=== PATIENT | male | born 1965 | race Caucasian/White ===

== ENCOUNTER 2017-01-18 09:55 | Inpatient (IN) | payer BC, OTHER ==
[2017-01-18] VITALS (15 sets, daily range): BP systolic 88–152; BP diastolic 53–92; PULSE 52–97; RESP 16–22; TEMP 97.3–98.3; O2SAT 96–100
[~2017-01-18 09:55] MED LIST: 1-ME1LIQ PO; LEVO100T4 PO; LISI-363 PO; LOPI600T PO; TYLETAB36 PO
[2017-01-18] MEDS ORDERED: NITROGLYCERIN-D5W 50 MG/250 ML 250 ML IV PRN (10:00)
[2017-01-18] MEDS ORDERED: NITROGLYCERIN 0.4 MG SL 25 TABS/BTL SL STA (10:00)
[2017-01-18] MEDS ORDERED: SODIUM CHLORIDE 0.9% FLUSH 10 ML FLUSH IVF PRN (10:00)
[2017-01-18] MEDS ORDERED: ASPIRIN 81 MG CHEW TAB PO STA (10:00)
[2017-01-18] MEDS ORDERED: SODIUM CHLOR 0.9% 1000 ML INJ 1,000 ML IV ONE (10:00)
[2017-01-18] MEDS ORDERED: HEPARIN SODIUM - IV 10,000 UNITS/10 ML VIAL IV STA (10:00)
[2017-01-18] MEDS ORDERED: NITROGLYCERIN-D5W 50 MG/250 ML 250 ML ONE (10:03)
[2017-01-18] MEDS ORDERED: NITROGLYCERIN 0.4 MG SL 25 TABS/BTL SL ONE (10:03)
[2017-01-18] MEDS ORDERED: MORPHINE SULFATE 4 MG/ML INJ IV PUSH ONE (10:15)
[2017-01-18] MEDS ORDERED: HEPARIN-NS/PF INJ 1,000 ML ONE (10:15)
[2017-01-18] MEDS ORDERED: BIVALIRUDIN 250 MG VIAL ONE ×2 (10:15→10:32)
[2017-01-18] MEDS ORDERED: ONDANSETRON HCL 4 MG/2 ML VIAL IV PUSH ONE (10:15)
--- NOTE | 2017-01-18 10:15 | RADRPT ---
EXAM DATE/TIME: 01/18/2017 10:06 [place] COMPARISON: No previous studies available for comparison. INDICATIONS : Cardiac alert, chest pain MEDICAL HISTORY : None. SURGICAL HISTORY : None. ENCOUNTER: Initial ACUITY: 1 day PAIN SCORE: 10/10 LOCATION: Bilateral chest FINDINGS: Portable AP view of the chest demonstrates a normal-sized cardiac silhouette. No effusion, consolidat ion, or pneumothorax is visualized. The bones and soft tissues demonstrate no acute abnormality. Plea se note that the left hemidiaphragm and costophrenic angle is not visualized. CONCLUSION: No acute cardiopulmonary abnormality is identified given the technique. Chad Gibbs MD on January 18, 2017 at 10:12 Board Certified Radiologist. This report was verified electronically.
[2017-01-18] MEDS ORDERED: NITROGLYCERIN INJ 5 ML ONE (10:16)
[2017-01-18] MEDS ORDERED: HEPARIN SODIUM - IV 10,000 UNITS/10 ML VIAL ONE (10:16)
[2017-01-18] MEDS ORDERED: MIDAZOLAM HCL 2 MG/2 ML VIAL ONE (10:16)
[2017-01-18 10:19] LABS: CHLORIDE 105 MEQ/L (98-107); POTASSIUM 3.7 MEQ/L (3.5-5.1); SODIUM (NA) 140 MEQ/L (136-145)
[2017-01-18 10:21] LABS: BASOPHIL # 0.2 TH/MM3 (0-0.2); BASOPHIL % 1.8 % (0.0-2.0); EOSINOPHIL # 0.4 TH/MM3 (0-0.4); EOSINOPHIL % 3.7 % (0.0-4.0); HEMATOCRIT 51.1 % (39.0-51.0); HEMO FLAGS DIFF FINAL; LYMPH % 47.2 % (9.0-44.0); LYMPHOCYTE # 4.6 TH/MM3 (1.0-4.8); MEAN CELL VOLUME 99.7 FL (80.0-100.0); MEAN CORPUSCULAR HEMOGLOBIN 32.5 PG (27.0-34.0); MEAN CORPUSCULAR HGB CONC 32.6 % (32.0-36.0); MONO % 7.3 % (0.0-8.0); PLATELET COUNT 273 TH/MM3 (150-450); RED BLOOD COUNT 5.13 MIL/MM3 (4.50-5.90); RED CELL DISTRIBUTION WIDTH 14.6 % (11.6-17.2); WHITE BLOOD COUNT 9.9 TH/MM3 (4.0-11.0)
[2017-01-18 10:22] LABS: ANION GAP 13 MEQ/L (5-15); BICARBONATE 22.3 MEQ/L (21.0-32.0); BLOOD UREA NITROGEN 9 MG/DL (7-18); MAGNESIUM 2.2 MG/DL (1.5-2.5)
[2017-01-18 10:23] LABS: APTT (PATIENT) 27.6 SEC (24.3-30.1); PROTHROMBIN TIME - PATIENT 10.7 SEC (9.8-11.6)
[2017-01-18 10:25] LABS: GLOMERULAR FILTRATION RATE 79 ML/MIN (>89)
--- NOTE | 2017-01-18 10:26 | PD ---
HPI Chief Complaint: STEMI Alert Time Seen by Provider: 10:00 Travel History International Travel<30 days: No Contact w/Intl Traveler<30days: No Traveled to known affect area: No History of Present Illness HPI This 51-year-old male says he woke up at 9 AM with left-sided chest pain. He says the pain is severe. It is not pleuritic. It radiates down his left arm. He has not been diaphoretic. He has not had pain like this before. He says he has no history of exertional chest pain. He has a history of hypertension and is on 2 medications but is not sure what they are. He does smoke cigarettes. Pain is constant and severe PFSH Past Medical History Anxiety: No Depression: No Cancer: No Cardiovascular Problems: Yes Diabetes: No Diverticulitis: Yes Endocrine: No Glaucoma: No Genitourinary: No Hepatitis: No Hiatal Hernia: No Hypertension: Yes Immune Disorder: No Musculoskeletal: Yes (LEFT HIP AVACULAR NECROSIS) Neurologic: No Psychiatric: No Reproductive: No Respiratory: No Thyroid Disease: Yes Past Surgical History Abdominal Surgery: Yes (UMBILICAL HERNIA REPAIR) Body Medical Devices: ABDOMINAL MESH Cardiac Surgery: No Ear Surgery: No Endocrine Surgery: No Eye Surgery: No Genitourinary Surgery: No Oral Surgery: Yes (T&A) Pacemaker: No Thoracic Surgery: No Other Surgery: Yes (Total hip (L); umbilical hernia) Family History Family Hypercholesterolemia: Yes Social History Alcohol Use: Yes Tobacco Use: Yes Substance Use: No Allergies-Medications (Allergen,Severity, Reaction): Coded Allergies: No Known Allergies (Verified , 01/18/17) Reported Meds & Prescriptions Reported Meds & Active Scripts Active Review of Systems General / Constitutional: No: Fever, Chills Eyes: No: Diploplia, Blurred Vision HENT: No: Headaches, Vertigo Cardiovascular: Positive: Chest Pain or Discomfort, No: Palpitations Respiratory: No: Cough, Shortness of Breath Gastrointestinal: No: Nausea, Vomiting Genitourinary: No: Urgency, Frequency Musculoskeletal: No: Myalgias Skin: No Rash, No Itching Neurologic: No: Weakness, Dizziness Hematologic/Lymphatic: No: Easy Bruising Physical Exam Narrative GENERAL: Well-developed male. He is complaining of severe pain SKIN: Focused skin assessment warm/dry. HEAD: Atraumatic. Normocephalic. EYES: Pupils equal and round. No scleral icterus. No injection or drainage. ENT: No nasal bleeding or discharge. Mucous membranes pink and moist. NECK: Trachea midline. No JVD. CARDIOVASCULAR: Regular rate and rhythm. No murmur appreciated. There is no chest wall tenderness RESPIRATORY: No accessory muscle use. Clear to auscultation. Breath sounds equal bilaterally. GASTROINTESTINAL: Abdomen soft, non-tender, nondistended. Hepatic and splenic margins not palpable. MUSCULOSKELETAL: No obvious deformities. No clubbing. No cyanosis. No edema. NEUROLOGICAL: Awake and alert. No obvious cranial nerve deficits. Motor grossly within normal limits. Normal speech. PSYCHIATRIC: Appropriate mood and affect; insight and judgment normal. Data Data Last Documented VS Vital Signs Date Time Temp Pulse Resp B/P (MAP) Pulse Ox O2 Delivery O2 Flow Rate FiO2 01/18/17 10:00 100 Nasal Cannula 2.00 01/18/17 09:59 74 22 141/92 (108) Orders Orders Troponin I (01/18/17 10:00) Ckmb (Isoenzyme) Profile (01/18/17 10:00) Complete Blood Count With Diff (01/18/17 10:00) Basic Metabolic Panel (Bmp) (01/18/17 10:00) Magnesium (Mg) (01/18/17 10:00) Calcium (01/18/17 10:00) Prothrombin Time / Inr (Pt) (01/18/17 10:00) Act Partial Throm Time (Ptt) (01/18/17 10:00) B-Type Natriuretic Peptide (01/18/17 10:00) Chest, Single Ap (01/18/17 10:00) Electrocardiogram (01/18/17 10:00) Oxygen Administration (01/18/17 10:00) Iv Access Insert/Monitor (01/18/17 10:00) Oximetry (01/18/17 10:00) Sodium Chlor 0.9% 1000 Ml Inj (Ns 1000 M (01/18/17 10:00) Sodium Chloride 0.9% Flush (Ns Flush) (01/18/17 10:00) Aspirin Chew (Aspirin Chew) (01/18/17 10:00) Nitroglycerin Sl (Nitrostat Sl) (01/18/17 10:00) Nitroglycerin-D5w 50 Mg/250 Ml (Nitrogly (01/18/17 10:00) Heparin Inj (Heparin Inj) (01/18/17 10:00) Admit Order (Ed Use Only) (01/18/17 10:02) Nitroglycerin-D5w 50 Mg/250 Ml (Nitrogly (01/18/17 10:03) Nitroglycerin Sl (Nitrostat Sl) (01/18/17 10:03) Ondansetron Inj (Zofran Inj) (01/18/17 10:15) Morphine Inj (Morphine Inj) (01/18/17 10:15) CKMB (01/18/17 10:05) CKMB% (01/18/17 10:05) Labs Laboratory Tests Test 01/18/17 10:05 White Blood Count 9.9 TH/MM3 Red Blood Count 5.13 MIL/MM3 Hemoglobin 16.7 GM/DL Hematocrit 51.1 % Mean Corpuscular Volume 99.7 FL Mean Corpuscular Hemoglobin 32.5 PG Mean Corpuscular Hemoglobin Concent 32.6 % Red Cell Distribution Width 14.6 % Platelet Count 273 TH/MM3 Mean Platelet Volume 8.3 FL Neutrophils (%) (Auto) 40.0 % Lymphocytes (%) (Auto) 47.2 % Monocytes (%) (Auto) 7.3 % Eosinophils (%) (Auto) 3.7 % Basophils (%) (Auto) 1.8 % Neutrophils # (Auto) 4.0 TH/MM3 Lymphocytes # (Auto) 4.6 TH/MM3 Monocytes # (Auto) 0.7 TH/MM3 Eosinophils # (Auto) 0.4 TH/MM3 Basophils # (Auto) 0.2 TH/MM3 CBC Comment DIFF FINAL Differential Comment Prothrombin Time 10.7 SEC Prothromb Time International Ratio 1.0 RATIO Activated Partial Thromboplast Time 27.6 SEC Blood Urea Nitrogen 9 MG/DL Creatinine 0.99 MG/DL Random Glucose 158 MG/DL Calcium Level 8.1 MG/DL Magnesium Level 2.2 MG/DL Sodium Level 140 MEQ/L Potassium Level 3.7 MEQ/L Chloride Level 105 MEQ/L Carbon Dioxide Level 22.3 MEQ/L Anion Gap 13 MEQ/L Estimat Glomerular Filtration Rate 79 ML/MIN Total Creatine Kinase 120 U/L Creatine Kinase MB 8.4 NG/ML Troponin I 1.08 NG/ML B-Type Natriuretic Peptide 6 PG/ML MDM Medical Decision Making Medical Screen Exam Complete: Yes Emergency Medical Condition: Yes Medical Record Reviewed: Yes Differential Diagnosis On arrival an EKG was obtained which shows elevations in leads II, III, and F consistent with ST elevation IN. Case discussed with Dr. Smith and the patient will is being transferred to [facility] emergently. He has been given a single dose of heparin. He has been given a dose of morphine and a nitroglycerin drip was started. The patient has had ongoing pain. Narrative Course Patient is being transferred to [facility] emergently as a STEMI Diagnosis Primary Impression: STEMI (ST elevation myocardial infarction) Admitting Information Admitting Physician Requests: Admit Ron Jeffery MD Jan 18, 2017 10:26
[2017-01-18 10:28] LABS: CREATINE KINASE 120 U/L (39-308)
[2017-01-18] MEDS ORDERED: IOHEXOL 350 MG/ML 100 ML BTL (for Cath Lab) OTHER ONE (10:38)
[2017-01-18 10:41] LABS: CKMB 8.4 NG/ML (0.5-3.6)
[2017-01-18] MEDS ORDERED: CLOPIDOGREL 300 MG TAB ONE (11:13)
--- NOTE | 2017-01-18 11:20 | MB ---
cc: REFUGIO BARRIOS DATE OF : 1965 DATE OF CONSULTATION: 01/18/2017 REASON FOR CONSULTATION: ST segment elevation RI. HISTORY OF PRESENT ILLNESS A 51-year-old male with no cardiac medical history who presented to [facility] complaining of chest pain that started at 9 a.m. He describes the pain as severe, that radiates to the left arm and associated with shortness of breath. Emergency department EKG showed ST segment elevation in 2, 3 and aVF consistent with acute inferior STEMI, thus cardiology has been consulted for emergent PCI. The patient was started on heparin and nitroglycerin and he has been transferred to [facility] for catheterization and possible PCI. PAST MEDICAL HISTORY: 1. Hypertension. 2. Left hip avascular necrosis. PAST SURGICAL HISTORY 1. Umbilical hernia repair. 2. Total hip replacement on the left. FAMILY HISTORY: Noncontributory. SOCIAL HISTORY: He is a smoker. He reports alcohol use. Denies illicit substance abuse. ALLERGIES: NO KNOWN DRUG ALLERGIES. HOME MEDICATIONS: None. PHYSICAL EXAMINATION: Vital signs: Temperature 97, respiratory rate 20, heart rate 71, blood pressure 91/61, O2 sat 100% on two liters nasal cannula. GENERAL: He awake, alert, oriented x3. Neck: No JVD. Heart: Regular rate and rhythm. No murmurs, rubs or gallops. Lungs: Clear to auscultation bilaterally. Abdomen: Benign. Extremities: No cyanosis or edema. Pulses throughout. LABORATORY DATA: CBC, hemoglobin 16, hematocrit 51 and platelet count 273, INR 1, sodium 140, potassium 3.7, BUN 9, creatinine 0.99, troponin 1.08. Chest x-ray: No acute cardiopulmonary process. EKG: sinus rhythm with ST-segment elevation in inferior leads. ASSESSMENT/PLAN A 51-year-old male smoker, presenting with inferior ST-segment elevation RI. The patient remains on a nitro drip and heparin was given. He will be taken emergently to the Cardiac Catheterization Laboratory for primary PCI per ACC/ AHA guidelines. The risks and benefits of left heart catheterization, PCI, including but not limited to neurovascular trauma, infection, acute kidney injury, bleeding, stroke, emergent bypass surgery and have been explained to the patient. The patient understands the risks and is willing to proceed. RECOMMENDATIONS: Emergent left heart catheterization/possible PCI. Further therapy to be determined. MD ANNA Carlisle/HIRAM /10:35 AM /11:08 AM [facility]
[2017-01-18] MEDS ORDERED: SODIUM CHLOR 0.9% 1000 ML INJ 1,000 ML IV SCH (11:23)
[2017-01-18] MEDS ORDERED: ACETAMINOPHEN 325 MG TAB PO PRN (11:30)
[2017-01-18] MEDS ORDERED: MISC INFORMATION XX ONE (11:30)
--- NOTE | 2017-01-18 11:35 | CATHPROC ---
[employer] HIS Report Study Information Study Number Admission Scheduled Start Study Start [id number] Jan 18 2017 10:05AM 01/18/2017 Jan 18 2017 10:19AM [place] [facility] Cardiac Catheterization Admit Source Facility Department Emergency department [facility] - [facility] Physician and Clinical Staff Initial Jimmy Klein Bell Clerk Desi Quispe,COLLEEN Bell Clerk Sandy Jensen,COLLEEN Other cathlab, cathlab Recorder Sharlene Ibrahim,DOCTOR NATUROPATHIC TECH2 Scrub Senthil Barrett,RT(R) Procedures Performed Procedure Location (Site) Vessel Name Coronary Angiograms LCA Left Coronary Drug Eluting Inflatio RCA Mid Right Coronary L Heart Cath LV Gram-hand inj. LV LV Ventricle PTCA RCA Mid Right Coronary Wire insertion Fem Art (right) Femoral Art Equipment Time Electric Motor Repairer Description Size Mfg Part Number Used/Scraped COPILOT VALVE, BLEEDBACK [id number] 10:27 [employer] Used CONTROL *[id number] PERCLOSE, PRO GLIDE CLOSER 10:58 [employer] FR 6 [id number] *[id number] Used DEVICE PERCLOSE, PRO GLIDE CLOSER 11:07 [employer] FR 6 [id number] *[id number] Used DEVICE TRANSDUCER, TRUWAVE [id number] 10:25 GARCIA SALAZAR * Used W/STOCKCOCK *[id number] 10:53 [employer] BALLOON, 2.5 12MM EMERGE MR 2.5 12MM Used *[id number]- INTRODUCER SET, 10:25 [employer] FR 5 [id number]-U-[id number] Used MICROPUNCTURE, STIFFENED *[id number] *[id number] *[id number] *[id number] 131130 11:10 DAI/ST. VIJAYA MEDICAL ANGIOSEAL, FR6 VIP FR 6 Used *[id number] 10:25 [employer] INDUSTRIES PACK, CCL CUSTOM * Used *[id number] BALLOON, 3.75 X 12MM NC [id number] 10:58 MED[employer]ONIC 12MM Used EUPHORA *[id number] STENT, 3.5 18 RESOLUTE [id number] 10:54 MEDTRONIC 3.5 18 Used INTEGRITY RX *[id number] 10:26 [employer] MEDICAL 30 ARNOL INDEFLATOR Used *[id number] 10:25 [employer] WIRE, 3MMJ .035 180CM 180CM Used *[id number] 10:25 NAMIC MANIFOLD, 4 PORT * Used *[id number] 10:25 [employer]COMED OMNIPAQUE, 350 MG, 150ML 150ML [id number] Used [id number] 10:25 [employer] MEDICAL BLANKET,WARM AIR CCL * Used *[id number] 10:26 TERUMO MEDICAL SHEATH, FR6 TERUMO (10CM) FR 6 Used *[id number] WIRE, RUNTHROUGH NS FLOPPY 10:54 TERUMO MEDICAL 180CM Used .014 180CM *[id number] Equipment Model, Serial, Lot Number and Expiration Data Description Model Number Serial Number Lot Number Expiration Date BALLOON, 2.5 12MM EMERGE MR [id number] 08-12-2019 BALLOON, 3.75 X 12MM [place] [id number] 03-12-2018 EUPHORA PERCLOSE, PRO GLIDE CLOSER [id number] 09-07-2018 DEVICE PERCLOSE, PRO GLIDE CLOSER [id number] 08-08-2018 DEVICE STENT, 3.5 18 RESOLUTE [id number] 08-18-2018 INTEGRITY RX History: Allergies Allergy Reaction No Known Allergies History: Risk Factors Family History of Hypertension Dyslipidemia Previous CT Previous Heart Failure Premature CAD Yes Yes No No No Prior Valve Prior PCI Prior CABG Surgery No No No Cerebrovascular Peripheral Artery Chronic Lung On Dialysis Diabetes Disease Disease Disease No No No No No History: Symptoms/Diagnosis Selection Items Angina-unstable History: Stress Tests Stress or Imaging Studies Performed No History: Other Current Smoker Method Packs a Day Years Used Pack Years Yes Cigarettes 1 20 20 Medication Medication Total Dose (Bolus/Oral) Medication Total Dosage/Unit 1% XYLOCAINE 15 mL ANGIOMAX BOLUS 14 mL FENTANYL 50 mcg OXYGEN 2 l/min PLAVIX 600 mg VERSED 2 mg Medications (Bolus/Oral) Medication Time Given Dosage/Unit Administered By Reason OXYGEN 01/18/2017 10:40:43 AM 2 l/min cathlab, cathlab 2 l/min OXYGEN given in lab by cathlab cathlab via Nasal. Ordered by Jimmy Flowers. 1% XYLOCAINE 01/18/2017 10:48:10 AM 15 mL Jimmy Flowers 15 mL 1% XYLOCAINE given in lab by Jimmy Flowers in Right Groin via Subcutaneous. Ordered by Jimmy Renee. VERSED 01/18/2017 10:48:58 AM 2 mg Sandy Jensen 2 mg VERSED given in lab by Sandy Jensen RN in Left Antecubital via Peripheral IV. Ordered by Jimmy Marie. FENTANYL 01/18/2017 10:49:16 AM 50 mcg Sandy Jensen 50 mcg FENTANYL given in lab by Sandy Jensen, COLLEEN in Left Antecubital via Peripheral IV. Ordered by Jimmy Flowers. ANGIOMAX BOLUS 01/18/2017 10:50:48 AM 14 mL Sandy Jensen 14 mL ANGIOMAX BOLUS given in lab by Sandy Jensen RN in Left Antecubital via Peripheral IV. Order ed by Jimmy Flowers. PLAVIX 01/18/2017 11:15:32 AM 600 mg Sandy Jensen 600 mg PLAVIX given in lab by Sandy Jensen, COLLEEN via Oral. Ordered by Jimmy Flowers. Medication (Drip) Medication Time Given Dosage/Unit Concentration/Unit Diluent (ml) Solutio n AGGRASTAT DRIP 01/18/2017 10:51:27 AM 0.15 mcg/kg/min 12.5 mg 250 NaCl .9 0.15 mcg/kg/min AGGRASTAT DRIP given in lab by Sandy Jensen RN in Left Antecubital via Peripheral IV. Pump/Drip Flow = 16.2 ml/hr using NaCl .9 with a concentration of 12.5 mg in 250 ml. Ordered by Jimmy Flowers. IV Solutions 01/18/2017 10:40:44 AM 0 mL (IV) NaCl .9 Patient arrived on IV Solutions given by cathlab, cathlab in Left Antecubital via Peripheral IV. Pump /Drip Flow = 20 ml/hr using NaCl .9. Ordered by Jimmy Floewrs. NITROGLYCERIN DRIP 01/18/2017 10:40:42 AM 10 mcg/min 50 mg 250 NaCl .9 Patient arrived on 10 mcg/min NITROGLYCERIN DRIP given by cathlab, cathlab in Left Antecubital via Pe ripheral IV. Pump/Drip Flow = 3 ml/hr using NaCl .9 with a concentration of 50 mg in 250 ml. Ordered by Jimmy Flowers. Initial Case Assessment Cardiovascular NIBP 156/93 Edema Present Skin color Skin None Normal Warm Dry Neurological State Oriented to time-place- Alert Moves all extremities person Respiration - General Respiration Rate SpO2 (%) O2 (lpm) (B/min) 17 100 3 Final Case Assessment Cardiovascular HR NIBP Chest Pain 68 114/76 0 Edema Present Skin color Skin None Normal Warm Dry Neurological State Oriented to time-place- Alert Moves all extremities person Respiration - General Respiration Rate SpO2 (%) (B/min) 11 94 Chronological Log Time Study Chronological Log 10:39:10 Patient Name, D.O.B, / Armband Verified By R.N. 10:39:12 Consent signed by the physician and the patient and verified by the [facility] staff. 10:39:13 Pre-op and post- op instructions given; patient acknowledges understanding of instructions. 10:39:15 Patient has been NPO for More than 6Hrs. 10:39:16 Skin Breakdown- 10:39:18 Disposable Defibrillator Pads On Patient. 10:39:22 324 ASPRIN AND 5,000 UNITS HEPARIN GIVEN IN [facility] 10:40:38 Hasmukh Prominences Protected 10:40:40 A # 20 IV was noted in the Antecubital (left). Grade = 0 10:40:41 A # 20 IV was noted in the Antecubital (right). Grade = 0 Patient arrived on 10 mcg/min NITROGLYCERIN DRIP given by cathlab cathlab in Left Antecubital via Peripheral IV. 10:40:42 Pump/Drip Flow = 3 ml/hr using NaCl .9 with a concentration of 50 mg in 250 ml. Ordered by Jimmy Renee. 10:40:43 2 l/min OXYGEN given in lab by cathjonny cathlab via Nasal. Ordered by Jimmy Flowers. Patient arrived on IV Solutions given by cathlab, cathlab in Left Antecubital via Peripheral IV . Pump/Drip Flow = 20 10:40:44 ml/hr using NaCl .9. Ordered by Jimmy Flowers. 10:40:45 History and physical on the chart or being dictated. Vitals capture started with the following parameters, Patient=Adult, Interval=5 min, Initial Pr xbccqv=245 mmHg, 10:42:58 Deflation Rate=5 mmHg, Cuff placed on Left Arm 10:44:07 HR=53 bpm, OIKN=434/93 mmhg, OaP7=882.0 %, Resp=17 B/min, Pain=3, Amita=10, Ocampo=2 Assessment: Initial Case, ZFSN=769/93 mmhg, Edema=None, Color=Normal, Skin = Warm, Dry 10:44:14 Neurological: State=Alert, Ox3, MICHAELS Respiration: Resp=17 B/min, FsC0=308 %, O2=3 lpm 10:44:59 Bilateral groins prepped with 2% chlorhexidine, and with a 3 min. waiting time. 10:45:58 Reference ECG taken 10:46:45 Pressure channel 1 zeroed. Time Out. Correct patient, correct procedure,correct physician, power injector not loaded with contrast with surgical 10:47:51 team present. Time Out Concurred by MD, individual staff in procedure 10:48:08 Case Start 15 mL 1% XYLOCAINE given in lab by Jimmy Flowers in Right Groin via Subcutaneous. Ordered b y Lionel, 10:48:10 Jimmy. 10:48:24 Access site was Right Femoral Artery. A INTRODUCER SET, MICROPUNCTURE, STIFFENED FR 5 was advanced into the Fem Art (right) using the Modified 10:48:37 Seldinger technique. 10:48:43 HR=63 bpm, CPDK=828/84 mmhg, TrI6=203.0 %, Resp=12 B/min, Pain=3, Amita=10, Ocampo=2 A SHEATH, FR6 TERUMO (10CM) FR 6 was exchanged in the Fem Art (right). This was necessary in or leila to achieve 10:48:43 vascular hemostasis. 10:48:58 2 mg VERSED given in lab by Sandy Jensen, COLLEEN in Left Antecubital via Peripheral IV. Orde red by Jimmy Flowers. 50 mcg FENTANYL given in lab by Sandy Jensen, COLLEEN in Left Antecubital via Peripheral IV. Orde red by Lionel, 10:49:16 Jimmy. A JL 4.0 INFINITI CATHETER FR 5 was advanced over a wire. OMNIPAQUE, 350 MG, 150ML 150ML was us ed for 10:49:41 injections. 10:49:49 The LCA was injected and visualized at various angles. OMNIPAQUE, 350 MG, 150ML 150ML used . Recorded Pressure: Ao, HR=71, Condition=Condition 1 10:49:58 (Aorta) Ao 126/79/99 14 mL ANGIOMAX BOLUS given in lab by Sandy Jensen, COLLEEN in Left Antecubital via Peripheral IV. Ordered by Smith- 10:50:48 Jimmy Pichardo. After removing the current catheter a JR 4.0 GUIDE CATHETER FR 6 was advanced over a WIRE, 3MMJ .035 180CM 10:51:13 180CM. 0.15 mcg/kg/min AGGRASTAT DRIP given in lab by Sandy Jensen RN in Left Antecubital via Anni pheral IV. 10:51:27 Pump/Drip Flow = 16.2 ml/hr using NaCl .9 with a concentration of 12.5 mg in 250 ml. Ordered by Jimmy Flowers. 10:52:52 A WIRE, RUNTHROUGH NS FLOPPY .014 180CM 180CM was inserted via Fem Art (right). 10:53:34 HR=66 bpm, KXIJ=446/80 mmhg, SpO2=95.0 %, Resp=12 B/min, Pain=3, Amita=10, Ocampo=2 A BALLOON, 2.5 12MM EMERGE MR 2.5 12MM was inserted over WIRE, RUNTHROUGH NS FLOPPY .014 180CM 180CM 10:54:21 via the RCA Mid. 10:54:46 NITRO DRIP DISCONTINUED A BALLOON, 2.5 12MM EMERGE MR 2.5 12MM over a WIRE, RUNTHROUGH NS FLOPPY .014 180CM 180CM in th e RCA 10:56:04 Mid was inflated using a 30 ARNOL INDEFLATOR at 14 arnol for 20 sec. 10:56:10 Balloon Removed. A STENT, 3.5 18 RESOLUTE INTEGRITY RX 3.5 18 was advanced through a JL 4.0 INFINITI CATHETER FR 5 over a 10:56:13 WIRE, RUNTHROUGH NS FLOPPY .014 180CM 180CM. A STENT, 3.5 18 RESOLUTE INTEGRITY RX 3.5 18 was deployed using a 30 ARNOL INDEFLATOR at 14 atmos pheres for 10:56:14 20 seconds in the RCA Mid. 10:57:23 Delivery device removed 10:58:29 A balloons was inserted over wire via the RCA Mid. A BALLOON, 3.75 X 12MM NC EUPHORA 12MM over a WIRE, RUNTHROUGH NS FLOPPY .014 180CM 180CM in th e RCA 10:58:34 Mid was inflated using a 30 ARNOL INDEFLATOR at 14 arnol for 15 sec. 10:58:35 HR=69 bpm, FJSI=862/76 mmhg, SpO2=95 %, Resp=16 B/min, Pain=3, Amita=10, Ocampo=2 10:59:49 Balloon Removed. 10:59:57 Wire removed After removing the current catheter a PIGTAIL ANG. INFINITI CATHETER FR 5 was advanced over a W MONIKA, 3MMJ .035 11:00:02 180CM 180CM. Recorded Pressure: LV, HR=65, Condition=Condition 1 11:02:11 (Left Ventricle) LV 112/4/8 11:02:32 The LV was manually injected with 10 cc's and visualized. OMNIPAQUE, 350 MG, 150ML 150ML us ed. Recorded Pressure: LV, Ao, HR=66, Condition=Condition 1 11:02:43 (Left Ventricle) LV 115/4/10, (Aorta) Ao 113/70/88 11:03:08 Catheter was removed 11:03:34 HR=64 bpm, VDXM=129/74 mmhg, SpO2=95.0 %, Resp=17 B/min, Pain=3, Amita=10, Ocampo=2 11:04:11 An injection in the Fem Art (right) was made through the SHEATH, FR6 TERUMO (10CM) FR 6. 11:04:41 PERCLOSE, PRO GLIDE CLOSER DEVICE FR 6 placement in the Fem Art (right) 11:08:39 HR=63 bpm, NIBP=91/59 mmhg, SpO2=97.0 %, Resp=12 B/min, Pain=3, Amita=10, Ocampo=2 11:08:53 PERCLOSE, PRO GLIDE CLOSER DEVICE FR 6 placement in the Fem Art (right) 11:09:04 PERCLOSE UNSUCCESSFUL 11:12:37 ANGIOMAX DRIP DISCONTINUED 11:13:30 HR=73 bpm, NFJY=105/69 mmhg, SpO2=96.0 %, Resp=16 B/min, Pain=3, Amita=10, Ocampo=2 11:15:32 600 mg PLAVIX given in lab by Sandy Jensen, COLLEEN via Oral. Ordered by Jimmy Flowers. 11:17:25 Case End 11:18:33 HR=70 bpm, XCNF=433/77 mmhg, SpO2=96.0 %, Resp=18 B/min, Pain=3, Amita=10, Ocampo=2 11:23:36 HR=68 bpm, YJDY=180/76 mmhg, SpO2=94.0 %, Resp=11 B/min, Pain=3, Amita=10, Ocampo=2 Assessment: Final Case, HR=68 BPM, QNUO=433/76 mmhg, Chest Pain=0, Edema=None, Color=Normal, Sk in = Warm, Dry 11:24:30 Neurological: State=Alert, Ox3, MICHAELS Respiration: Resp=11 B/min, SpO2=94 % 11:26:42 Patient moved to stretcher 11:27:03 FEMSTOP PLACED ON RIGHT GROIN 11:27:25 Vitals capture stopped. 11:28:25 Bedside Report will be given. 11:29:04 A Left Heart Cath was performed. Vitals capture started with the following parameters, Patient=Adult, Interval=5 min, Initial Pr yhbntb=720 mmHg, 11:29:36 Deflation Rate=5 mmHg, Cuff placed on Left Arm 11:30:09 UCCR=653/77 mmhg, Pain=3, Amita=10, Ocampo=2 11:33:19 Vitals capture stopped. 11:34:18 Clinical correlaton risk stratification. End Study - Contrast Media Used In Study Contrast Total Opened (mL) Total Used (mL) Total Wasted (mL) Omnipaque 90 90 0 End Study - Radiation Exposure Fluoro Time (minutes) 5.4 End Study - Patient Disposition Complications Transferred To Interventional Outcome No Telemetry Bed successful
[2017-01-18] MEDS ORDERED: CLOPIDOGREL 300 MG TAB PO ONE (11:45)
--- NOTE | 2017-01-18 12:28 | MA ---
cc: REFUGIO BARRIOS DATE OF : 1965 DATE: 01/18/2017 PROCEDURE PERFORMED 1. Left heart catheterization. 2. Selective right and left coronary angiography. 3. Left ventriculogram. 4. Successful PCI to mid right coronary artery in the setting of STEMI. INDICATION Inferior STEMI APPROACH Right transfemoral. PROCEDURE DESCRIPTION Consent signed. The patient was taken emergently to the Cardiac Catheterization Laboratory. The right groin was prepped and draped in sterile fashion using 1% lidocaine for local anesthesia, and a micropuncture kit. A 6- Sammarinese sheath was inserted into the right femoral artery, right femoral artery, right common femoral artery. Angiography was performed to confirm position of the sheath. Then selective right and left coronary angiography was performed with a JL-4 and a JR-4 guide. Angiography was performed in multiple views. We identified a culprit lesion of the stenting in the mid right coronary artery. We also gave Angiomax for IV anticoagulation and a run-through wire was used to cross the lesion and anchored distally in the PDA. The lesion was predilated with a 2.5 balloon followed by insertion of the femoral with 3.5 18 drug- eluting stent. The stent was postdilated with a noncompliant 3.75 12 balloon. Final angiographic views revealed good stent position expansion with KAMILA-III flow and no residual stenosis. The patient tolerated the procedure well without complications. Estimated blood loss less than 50 cc. Total contrast used 75 cc. Of note, we did a left ventriculogram. This was with an angled pigtail that was introduced into the ventricle over a wire. Sheath was followed by pressure recordings, left ventriculogram and pullback. Groin access site was closed with manual pressure. RESULTS: The left ventricular pressure was 115/4 with an LVEDP of 10. Aortic pressure was 113/70 with a mean of 88. There was no gradient upon pullback from the left ventricle to the aorta. Left Ventriculogram revealed a symmetric ruthie ventricle with estimated ejection fraction of 50%. ANGIOGRAPHY; 1. LM- Patent giving off the LAD and LCx arteries 2. LAD- Transapical vessel has a 70% lesion in its proximal segment, is giving off 2 diagonal vessel which patent 3. LCx- Minimal luminal irregularities, prominent OM1 vessel which is patent 4. RCA- Dominant, given off the PDA and PLB. The RCA has a thrombus in its mid- segment with KAMILA flow 2. CONCLUSION 1. Successful PCI / FABRICIO to mid RCA in the setting of inferior ST segment elevation NE. 2. Preserved LV systolic function. RECOMMENDATIONS: The patient will be admitted to [facility] for post cath care. He will be started on aspirin and Plavix as well as aggressive medical management for secondary prevention for CAD. MD ANNA Carlisle/HIRAM /11:20 AM /12:14 PM MTDAlan
[2017-01-18] MEDS ORDERED: LEVO137T2 PO (16:41)
[2017-01-18] MEDS ORDERED: MORPHINE SULFATE 8 MG/ML INJ ONE (18:38)
--- NOTE | 2017-01-18 18:45 | ECHRPT ---
Indication: Coronary Atherosclerosis CONCLUSIONS The left ventricular systolic function is normal with an estimated ejection fraction in the range of 55-60%. Normal left ventricular size. Wall thickness is normal. No regional wall motion abnormalities are present. Trace mitral valve regurgitation. Pulmonary arterial systolic pressure could not be estimated due to an insufficient tricuspid valve regurgitation doppler jet for measurement. BP: 91 / 61 HR: 71 Rhythm: Sinus MEASUREMENTS (Male / Female) Normal Values Technical Quality:Fair 2D ECHO LV Diastolic Diameter PLAX 4.6 cm 4.2 - 5.9 / 3.9 - 5.3 cm LV Systolic Diameter PLAX 3.1 cm IVS Diastolic Thickness 1.1 cm 0.6 - 1.0 / 0.6 - 0.9 cm LVPW Diastolic Thickness 1.1 cm 0.6 - 1.0 / 0.6 - 0.9 cm LV Relative Wall Thickness 0.5 RV Internal Dim ED PLAX 2.5 cm LVOT Diameter 1.9 cm LA Systolic Diameter LX 4.0 cm 3.0 - 4.0 / 2.7 - 3.8 cm LV Ejection Fraction MOD 4C 57.0 % LV Cardiac Index MOD 4C 1628.4 cm/minm LV Ejection Fraction 4C AL 61.6 % LV Cardiac Index 4C AL 1829.3 cm/minm M-MODE Aortic Root Diameter MM 2.8 cm AV Cusp Separation MM 2.2 cm DOPPLER AV Peak Velocity 119.0 cm/s AV Peak Gradient 5.7 mmHg LVOT Peak Velocity 103.0 cm/s LVOT Peak Gradient 4.2 mmHg AV Area Cont Eq pk 2.5 cm MV Area PHT 2.9 cm Mitral E Point Velocity 75.5 cm/s Mitral A Point Velocity 92.3 cm/s Mitral E to A Ratio 0.8 LV E' Lateral Velocity 8.8 cm/s Mitral E to LV E' Lateral Ratio 8.6 LV E' Septal Velocity 6.3 cm/s Mitral E to LV E' Septal Ratio 11.9 PV Peak Velocity 84.2 cm/s PV Peak Gradient 2.8 mmHg FINDINGS LEFT VENTRICLE The left ventricular systolic function is normal with an estimated ejection fraction in the range of 55-60%. Normal left ventricular size. Wall thickness is normal. No regional wall motion abnormalities are present. RIGHT VENTRICLE Normal right ventricular size and systolic function. LEFT ATRIUM The left atrial size is normal. RIGHT ATRIUM The right atrial size is normal. ATRIAL SEPTUM Normal atrial septal thickness without atrial level shunting by limited color doppler interrogation. AORTA The aortic root and proximal ascending aorta are normal in size on limited imaging. MITRAL VALVE Trace mitral valve regurgitation. AORTIC VALVE Trileaflet aortic valve. No aortic valve stenosis or regurgitation. TRICUSPID VALVE Pulmonary arterial systolic pressure could not be estimated due to an insufficient tricuspid valve regurgitation doppler jet for measurement. PULMONARY VALVE The pulmonary valve is not well visualized. VESSELS The inferior vena cava is normal in size. PERICARDIUM No pericardial effusion. Morgan Ontiveros MD (Electronically Signed) Final Date:18 January 2017 18:44
[2017-01-18 18:59] LABS: HEMATOCRIT 43.4 % (39.0-51.0); REVIEW FLAG FINAL
[2017-01-18] MEDS ORDERED: ONDANSETRON HCL 4 MG/2 ML VIAL ONE (19:58)
[2017-01-18] MEDS ORDERED: ONDANSETRON HCL 4 MG/2 ML VIAL IV PUSH PRN (20:15)
[2017-01-18] MEDS: METOPROLOL TARTRATE 25 MG TAB PO SCH (20:34)
[2017-01-18] MEDS: ATORVASTATIN 10 MG TAB PO SCH (20:34)
[2017-01-18] MEDS: oxyCODONE/ACETAMINOPHEN 5 MG/325 MG TAB PO PRN (20:38)
[2017-01-19] VITALS (25 sets, daily range): BP systolic 105–142; BP diastolic 72–87; PULSE 64–90; RESP 16–20; TEMP 98.3–98.7; O2SAT 97–99
[2017-01-19] MEDS: oxyCODONE/ACETAMINOPHEN 5 MG/325 MG TAB PO PRN ×4 (02:47→22:22)
[2017-01-19 04:20] LABS: BASOPHIL % 0.4 % (0.0-2.0); EOSINOPHIL # 0.1 TH/MM3 (0-0.4); EOSINOPHIL % 1.2 % (0.0-4.0); HEMATOCRIT 38.2 % (39.0-51.0); HEMO FLAGS DIFF FINAL; LYMPH % 25.3 % (9.0-44.0); LYMPHOCYTE # 2.8 TH/MM3 (1.0-4.8); MEAN CELL VOLUME 99.8 FL (80.0-100.0); MEAN CORPUSCULAR HEMOGLOBIN 33.8 PG (27.0-34.0); MEAN CORPUSCULAR HGB CONC 33.9 % (32.0-36.0); MONO % 9.5 % (0.0-8.0); NEUT % 63.6 % (16.0-70.0); PLATELET COUNT 191 TH/MM3 (150-450); RED BLOOD COUNT 3.82 MIL/MM3 (4.50-5.90); RED CELL DISTRIBUTION WIDTH 14.6 % (11.6-17.2); WHITE BLOOD COUNT 11.1 TH/MM3 (4.0-11.0)
[2017-01-19 04:38] LABS: POTASSIUM 3.3 MEQ/L (3.5-5.1)
[2017-01-19 04:40] LABS: HDL CHOLESTEROL 34.3 MG/DL (40.0-60.0)
[2017-01-19] MEDS: METOPROLOL TARTRATE 25 MG TAB PO SCH ×2 (08:35→21:24)
[2017-01-19] MEDS: ASPIRIN 81 MG CHEW TAB PO SCH (08:35)
[2017-01-19] MEDS: LISINOPRIL 5 MG TAB PO SCH (08:35)
[2017-01-19] MEDS: CLOPIDOGREL 75 MG TAB PO SCH (08:35)
--- NOTE | 2017-01-19 11:28 | PD.CARD.PN ---
Subjective Subjective Remarks No CV complaints Overnight events noted. Hematoma on access site after bedrest. Objective Medications Current Medications Medications (Trade) Dose Ordered Sig/Patricia Route Start Time Stop Time Status Last Admin (NS Flush) 2 ml UNSCH PRN IVF 01/18/17 10:00 Nitroglycerin/ Dextrose 250 ml @ 3 mls/hr TITRATE PRN IV 01/18/17 10:00 01/18/17 10:07 (Tylenol) 325 mg Q4H PRN PO 01/18/17 11:30 (Aspirin Chew) 81 mg DAILY PO 01/19/17 09:00 01/19/17 08:35 (Plavix) 75 mg DAILY PO 01/19/17 09:00 01/19/17 08:35 (Lopressor) 12.5 mg BID PO 01/18/17 21:00 01/19/17 08:35 (Prinivil) 5 mg DAILY PO 01/19/17 09:00 01/19/17 08:35 (Lipitor) 10 mg HS PO 01/18/17 21:00 01/18/17 20:34 (Zofran Inj) 4 mg Q6H PRN IV PUSH 01/18/17 20:15 (Percocet 5-325 Mg) 1 tab Q6H PRN PO 01/18/17 20:15 01/19/17 10:17 Vital Signs / I&O Vital Signs Date Time Temp Pulse Resp B/P (MAP) Pulse Ox O2 Delivery O2 Flow Rate FiO2 01/19/17 10:03 73 01/19/17 09:00 80 01/19/17 08:38 20 01/19/17 08:00 65 01/19/17 07:15 65 01/19/17 07:15 98.3 68 20 142/79 (100) 98 01/19/17 07:15 98 Nasal Cannula 2.00 01/19/17 06:04 74 01/19/17 05:00 68 01/19/17 04:06 18 01/19/17 04:00 67 01/19/17 03:05 73 01/19/17 03:00 98 Nasal Cannula 2.00 01/19/17 03:00 98.5 78 18 132/87 (102) 98 01/19/17 02:09 73 01/19/17 01:00 73 01/19/17 00:00 76 01/18/17 23:00 98 Nasal Cannula 2.00 01/18/17 23:00 82 01/18/17 23:00 98.1 82 16 129/80 (96) 98 01/18/17 22:00 92 01/18/17 21:00 90 01/18/17 20:00 82 01/18/17 19:00 100 Nasal Cannula 5.00 01/18/17 19:00 97.8 83 20 152/90 (110) 100 01/18/17 19:00 80 01/18/17 18:00 97 01/18/17 17:00 77 01/18/17 16:00 74 01/18/17 15:00 97.3 58 18 143/80 (101) 96 01/18/17 15:00 58 01/18/17 14:00 54 01/18/17 13:00 52 01/18/17 12:33 98.3 55 18 88/53 (65) 98 01/18/17 12:00 86 I/O 01/18/17 01/18/17 01/18/17 01/19/17 01/19/17 01/19/17 07:00 15:00 23:00 07:00 15:00 23:00 Intake Total 575 ml 720 ml Output Total 1500 ml 650 ml Balance -925 ml 70 ml Intake Oral 575 ml 720 ml Output Urine Total 1500 ml 650 ml # Bowel Movements 1 Physical Exam GENERAL: Well-nourished, well-developed patient. SKIN: Warm and dry. HEAD: Normocephalic. EYES: No scleral icterus. No injection or drainage. NECK: Supple, trachea midline. No JVD or lymphadenopathy. CARDIOVASCULAR: Regular rate and rhythm without murmurs, gallops, or rubs. RESPIRATORY: Breath sounds equal bilaterally. No accessory muscle use. GASTROINTESTINAL: Abdomen soft, non-tender, nondistended. EXTREMITIES: No cyanosis, or edema. NEUROLOGICAL: Awake, alert, and oriented x 3. Non-focal. Laboratory Laboratory Tests Test 01/18/17 18:42 01/19/17 04:10 Hemoglobin 15.0 GM/DL 12.9 GM/DL Hematocrit 43.4 % 38.2 % White Blood Count 11.1 TH/MM3 Red Blood Count 3.82 MIL/MM3 Mean Corpuscular Volume 99.8 FL Mean Corpuscular Hemoglobin 33.8 PG Mean Corpuscular Hemoglobin Concent 33.9 % Red Cell Distribution Width 14.6 % Platelet Count 191 TH/MM3 Mean Platelet Volume 8.5 FL Neutrophils (%) (Auto) 63.6 % Lymphocytes (%) (Auto) 25.3 % Monocytes (%) (Auto) 9.5 % Eosinophils (%) (Auto) 1.2 % Basophils (%) (Auto) 0.4 % Neutrophils # (Auto) 7.0 TH/MM3 Lymphocytes # (Auto) 2.8 TH/MM3 Monocytes # (Auto) 1.1 TH/MM3 Eosinophils # (Auto) 0.1 TH/MM3 Basophils # (Auto) 0.0 TH/MM3 CBC Comment DIFF FINAL Differential Comment Blood Urea Nitrogen 9 MG/DL Creatinine 1.09 MG/DL Random Glucose 142 MG/DL Calcium Level 7.6 MG/DL Sodium Level 137 MEQ/L Potassium Level 3.3 MEQ/L Chloride Level 104 MEQ/L Carbon Dioxide Level 23.0 MEQ/L Anion Gap 10 MEQ/L Estimat Glomerular Filtration Rate 71 ML/MIN Triglycerides Level 678 MG/DL Cholesterol Level 187 MG/DL LDL Cholesterol MG/DL HDL Cholesterol 34.3 MG/DL Cholesterol/HDL Ratio 5.45 RATIO Imaging Last Impressions Chest X-Ray 01/18/17 1000 Signed Impressions: Service Date/Time: Wednesday, January 18, 2017 10:06 - CONCLUSION: No acute cardiopulmonary abnormality is identified given the technique. Chad Gibbs MD Assessment and Plan Problem List: (1) STEMI (ST elevation myocardial infarction) ICD Codes: I21.3 - ST elevation (STEMI) myocardial infarction of unspecified site Status: Acute Plan: s/p PCI/FABRICIO to Mid RCA. Chest pain free, ambulating without difficulty. Right side hematoma after bowel movement. h&h and vital stable Recommendations: - ASA and Plavix - BB, ACEi, Statins - Encourage ambulation and incentive spirometry (2) DDD (degenerative disc disease), lumbar ICD Codes: M51.36 - DDD (degenerative disc disease), lumbar Status: Acute Problem Qualifiers (1) STEMI (ST elevation myocardial infarction): Qualified Codes: I21.11 - ST elevation (STEMI) myocardial infarction involving right coronary artery Jimmy Flowers MD Jan 19, 2017 11:28
--- NOTE | 2017-01-19 14:09 | EKG ---
Date Performed: 01/18/2017 Time Performed: 09:57:49 PTAGE: 51 years EKG: Sinus rhythm WITH OCCASIONAL SUPRAVENTRICULAR PREMATURE COMPLEXES MARKED LEFT AXIS DEVIATION LOW QRS VOLTAGE IN P RECORDIAL LEADS POSSIBLE ANTERIOR MYOCARDIAL INFARCTION MARKED ST ELEVATION, CONSIDER INFERIOR INJURY ACUTE CT Compared to PREVIOUS TRACING there is evidence of an acute inferior myocardial infarction with later al ST changes PREVIOUS TRACIN10/31/13 DOCTOR: Edwin Werner Interpretating Date/Time 01/19/2017 14:08:15
--- NOTE | 2017-01-19 14:11 | EKG ---
Date Performed: 01/18/2017 Time Performed: 11:58:48 PTAGE: 51 years EKG: Sinus rhythm with PAC(s) Left axis deviation Inferior infarct - age undetermined Compared to previous tracing carie lving inferior infarct continues, ST elevation has significantly improved, suggesting interval interv ention. Clinical correlation is recommended Abnormal ECG PREVIOUS TRACING : 01/16/2017 11.31 DOCTOR: Edwin Werner Interpretating Date/Time 01/19/2017 14:09:04
--- NOTE | 2017-01-19 14:54 | HHI.HP ---
History of Present Illness Service Family Primary Care Physician Neil Pantoja, DO Admission Diagnosis STEMI Diagnoses: History of Present Illness This 51-year-old male says who presented to ED with chest pain. He was brought to laborer shaft sinking as a code stemi and stent was placed to RCA. He has a past medical history of HTN and hypothyroidism. He currently smokes 1/2 pk of cigarettes daily. Daily ETOH use. Bruising noted to right groin area. Review of Systems Constitutional: DENIES: Fatigue, Fever, Chills, Dizziness Respiratory: DENIES: Cough, Wheezing, Sputum production, Shortness of breath Cardiovascular: DENIES: Chest pain, Palpitations, Dyspnea on Exertion Gastrointestinal: DENIES: Abdominal pain, Constipation, Diarrhea Hematologic/lymphatic: COMPLAINS OF: Bruising Psychiatric: DENIES: Anxiety, Confusion Past Family Social History Allergies: Coded Allergies: No Known Allergies (Verified , 01/18/17) Past Medical History HTN Hypothyroidism Past Surgical History Left hip surgery Umbilical hernia repair Active Ordered Medications Current Medications Medications (Trade) Dose Ordered Sig/Patricia Route Start Time Stop Time Status Last Admin (NS Flush) 2 ml UNSCH PRN IVF 01/18/17 10:00 Nitroglycerin/ Dextrose 250 ml @ 3 mls/hr TITRATE PRN IV 01/18/17 10:00 01/18/17 10:07 (Tylenol) 325 mg Q4H PRN PO 01/18/17 11:30 (Aspirin Chew) 81 mg DAILY PO 01/19/17 09:00 01/19/17 08:35 (Plavix) 75 mg DAILY PO 01/19/17 09:00 01/19/17 08:35 (Lopressor) 12.5 mg BID PO 01/18/17 21:00 01/19/17 08:35 (Prinivil) 5 mg DAILY PO 01/19/17 09:00 01/19/17 08:35 (Lipitor) 10 mg HS PO 01/18/17 21:00 01/18/17 20:34 (Zofran Inj) 4 mg Q6H PRN IV PUSH 01/18/17 20:15 (Percocet 5-325 Mg) 1 tab Q6H PRN PO 01/18/17 20:15 01/19/17 10:17 Family History Mother with Alzheimer Dad healthy Social History 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5 78 18 132/87 (102) 98 01/19/17 02:09 73 01/19/17 01:00 73 01/19/17 00:00 76 01/18/17 23:00 98 Nasal Cannula 2.00 01/18/17 23:00 82 01/18/17 23:00 98.1 82 16 129/80 (96) 98 01/18/17 22:00 92 01/18/17 21:00 90 01/18/17 20:00 82 01/18/17 19:00 100 Nasal Cannula 5.00 01/18/17 19:00 97.8 83 20 152/90 (110) 100 01/18/17 19:00 80 01/18/17 18:00 97 01/18/17 17:00 77 01/18/17 16:00 74 01/18/17 15:00 97.3 58 18 143/80 (101) 96 01/18/17 15:00 58 Physical Exam GENERAL: This is a well-nourished, well-developed patient, in no apparent distress. SKIN: No rashes. ecchymoses noted in right groin. Cool and dry. CARDIOVASCULAR: Regular rate and rhythm without murmurs, gallops, or rubs. RESPIRATORY: Clear to auscultation. Breath sounds equal bilaterally. No wheezes , rales, or rhonchi. GASTROINTESTINAL: Abdomen soft, non-tender, nondistended. No hepato-splenomegaly , or palpable masses. No guarding. MUSCULOSKELETAL: No calf tenderness. Negative Homans sign bilaterally. No edema NEUROLOGICAL: Awake and alert. Normal speech. Laboratory Laboratory Tests Test 01/18/17 18:42 01/19/17 04:10 Hemoglobin 15.0 12.9 Hematocrit 43.4 38.2 White Blood Count 11.1 Red Blood Count 3.82 Mean Corpuscular Volume 99.8 Mean Corpuscular Hemoglobin 33.8 Mean Corpuscular Hemoglobin Concent 33.9 Red Cell Distribution Width 14.6 Platelet Count 191 Mean Platelet Volume 8.5 Neutrophils (%) (Auto) 63.6 Lymphocytes (%) (Auto) 25.3 Monocytes (%) (Auto) 9.5 Eosinophils (%) (Auto) 1.2 Basophils (%) (Auto) 0.4 Neutrophils # (Auto) 7.0 Lymphocytes # (Auto) 2.8 Monocytes # (Auto) 1.1 Eosinophils # (Auto) 0.1 Basophils # (Auto) 0.0 CBC Comment DIFF FINAL Differential Comment Blood Urea Nitrogen 9 Creatinine 1.09 Random Glucose 142 Calcium Level 7.6 Sodium Level 137 Potassium Level 3.3 Chloride Level 104 Carbon Dioxide Level 23.0 Anion Gap 10 Estimat Glomerular Filtration Rate 71 Triglycerides Level 678 Cholesterol Level 187 LDL Cholesterol HDL Cholesterol 34.3 Cholesterol/HDL Ratio 5.45 Result Diagram: 01/19/17 0410 01/19/17 0410 Imaging Last 72 hours Impressions Chest X-Ray 01/18/17 1000 Signed Impressions: Service Date/Time: Wednesday, January 18, 2017 10:06 - CONCLUSION: No acute cardiopulmonary abnormality is identified given the technique. Chad Gibbs MD Caprini VTE Risk Assessment Caprini VTE Risk Assessment: Mod/High Risk (score >= 2) Caprini Risk Assessment Model Point Value = 1 Point Value = 2 Point Value = 3 Point Value = 5 Age 41-60 Minor surgery BMI > 25 kg/m2 Swollen legs Varicose veins or History of unexplained or recurrent spontaneous Oral contraceptives or hormone replacement Sepsis (< 1 month) Serious lung disease, including pneumonia (< 1 month) Abnormal pulmonary function Acute myocardial infarction Congestive heart failure (< 1 month) History of inflammatory bowel disease Medical patient at bed rest Age 61-74 Arthroscopic surgery Major open surgery (> 45 min) Laparoscopic surgery (> 45 min) Malignancy Confined to bed (> 72 hours) Immobilizing plaster cast Central venous access Age >= 75 History of VTE Family history of VTE Factor V Leiden Prothrombin [id number] Lupus anticoagulant Anticardiolipin antibodies Elevated serum homocysteine Heparin-induced thrombocytopenia Other congenital or acquired thrombophilia Stroke (< 1 month) Elective arthroplasty Hip, pelvis, or leg fracture Acute spinal cord injury (< 1 month) Prophylaxis Regimen Total Risk Factor Score Risk Level Prophylaxis Regimen 0-1 Low Early ambulation 2 Moderate Order ONE of the following: *Sequential Compression Device (SCD) *Heparin 5000 units SQ BID 3-4 Higher Order ONE of the following medications: *Heparin 5000 units SQ TID *Enoxaparin/Lovenox 40 mg SQ daily (WT < 150 kg, CrCl > 30 mL/min) *Enoxaparin/Lovenox 30 mg SQ daily (WT < 150 kg, CrCl > 10-29 mL/min) *Enoxaparin/Lovenox 30 mg SQ BID (WT < 150 kg, CrCl > 30 mL/min) AND/OR *Sequential Compression Device (SCD) 5 or more Highest Order ONE of the following medications: *Heparin 5000 units SQ TID (Preferred with Epidurals) *Enoxaparin/Lovenox 40 mg SQ daily (WT < 150 kg, CrCl > 30 mL/min) *Enoxaparin/Lovenox 30 mg SQ daily (WT < 150 kg, CrCl > 10-29 mL/min) *Enoxaparin/Lovenox 30 mg SQ BID (WT < 150 kg, CrCl > 30 mL/min) AND *Sequential Compression Device (SCD) Assessment and Plan Problem List: (1) STEMI (ST elevation myocardial infarction) ICD Codes: I21.3 - ST elevation (STEMI) myocardial infarction of unspecified site Status: Acute (2) Elevated blood sugar ICD Codes: R73.9 - Hyperglycemia, unspecified (3) Hypothyroidism ICD Codes: E03.9 - Hypothyroidism, unspecified (4) HTN (hypertension) ICD Codes: I10 - Essential (primary) hypertension Assessment and Plan s/p code stemi: stent to RCA. bruising noted to right groin will check HGB in am. On NAS/BB/statin/plavix Hypokalemia: K 3.3. 40 meq of KCL recheck in AM Hypothyroidism: Replacement added. TSH in AM HTN: Continue current regimen will monitor Elevated blood glucose; will order HAIC for AM Discharge plan home tomorrow. I and the AUTOMOTIVE SERVICE CONSULTANT have both examined this patient and reviewed this note and I agree with these findings and plan of care. Neil Pantoja DO Problem Qualifiers (1) STEMI (ST elevation myocardial infarction): Qualified Codes: I21.11 - ST elevation (STEMI) myocardial infarction involving right coronary artery Jewels Guevara [facility] Jan 19, 2017 14:54
[2017-01-19] MEDS ORDERED: POTASSIUM CHLORIDE 20 MEQ CONTROLLED RELEASE TAB PO ONE (15:00)
[2017-01-19] MEDS: ATORVASTATIN 10 MG TAB PO SCH (21:23)
[2017-01-20] VITALS (8 sets, daily range): BP systolic 119–143; BP diastolic 72–78; PULSE 62–84; RESP 16; TEMP 97.9–98.7; O2SAT 97–99
[2017-01-20] MEDS ORDERED: LEVOTHYROXINE SODIUM 125 MCG TAB PO SCH (06:00)
[2017-01-20 06:47] LABS: BASOPHIL # 0.1 TH/MM3 (0-0.2); BASOPHIL % 0.6 % (0.0-2.0); EOSINOPHIL # 0.2 TH/MM3 (0-0.4); EOSINOPHIL % 2.3 % (0.0-4.0); HEMATOCRIT 34.5 % (39.0-51.0); HEMO FLAGS DIFF FINAL; LYMPH % 25.6 % (9.0-44.0); LYMPHOCYTE # 2.5 TH/MM3 (1.0-4.8); MEAN CELL VOLUME 99.8 FL (80.0-100.0); MEAN CORPUSCULAR HEMOGLOBIN 34.7 PG (27.0-34.0); MEAN CORPUSCULAR HGB CONC 34.7 % (32.0-36.0); MONO % 9.4 % (0.0-8.0); NEUT % 62.1 % (16.0-70.0); PLATELET COUNT 159 TH/MM3 (150-450); RED BLOOD COUNT 3.45 MIL/MM3 (4.50-5.90); RED CELL DISTRIBUTION WIDTH 14.7 % (11.6-17.2); WHITE BLOOD COUNT 9.6 TH/MM3 (4.0-11.0)
[2017-01-20 07:09] LABS: ALT (GPT) 19 U/L (12-78); ANION GAP 7 MEQ/L (5-15); AST (GOT) 16 U/L (15-37); BICARBONATE 26.9 MEQ/L (21.0-32.0); BLOOD UREA NITROGEN 7 MG/DL (7-18); CHLORIDE 104 MEQ/L (98-107); GLOMERULAR FILTRATION RATE 84 ML/MIN (>89); POTASSIUM 3.7 MEQ/L (3.5-5.1); SODIUM (NA) 138 MEQ/L (136-145)
[2017-01-20 07:19] LABS: ALKALINE PHOSPHATASE 47 U/L (45-117); FREE T3 2.14 PG/ML (2.18-3.98); FREE T4 0.85 NG/DL (0.76-1.46); TOTAL BILIRUBIN ADULT 0.7 MG/DL (0.2-1.0)
[2017-01-20] MEDS ORDERED: LISI-519 PO (08:23)
[2017-01-20] MEDS ORDERED: METO25TA3 PO (08:23)
[2017-01-20] MEDS ORDERED: PLAV75TA29 PO (08:23)
[2017-01-20] MEDS ORDERED: ASPI81CH25 PO (08:23)
[2017-01-20] MEDS ORDERED: LIPI10TA PO (08:23)
[2017-01-20] MEDS ORDERED: LEVO.125 PO (08:23)
[2017-01-20] MEDS: LISINOPRIL 5 MG TAB PO SCH (08:27)
[2017-01-20] MEDS: ASPIRIN 81 MG CHEW TAB PO SCH (08:27)
[2017-01-20] MEDS: METOPROLOL TARTRATE 25 MG TAB PO SCH (08:28)
[2017-01-20] MEDS: CLOPIDOGREL 75 MG TAB PO SCH (08:28)
--- NOTE | 2017-01-20 08:28 | HHI.DS ---
Discharge Summary Admission Date Jan 18, 2017 at 10:05 Admitting Diagnosis STEMI (1) Elevated blood sugar ICD Codes: R73.9 - Hyperglycemia, unspecified (2) HTN (hypertension) ICD Codes: I10 - Essential (primary) hypertension Status: Chronic (3) Hypothyroidism ICD Codes: E03.9 - Hypothyroidism, unspecified Status: Chronic (4) STEMI (ST elevation myocardial infarction) ICD Codes: I21.3 - ST elevation (STEMI) myocardial infarction of unspecified site Status: Acute Brief History This 51-year-old male says who presented to ED with chest pain. He was brought to prosthetics lab technician as a code stemi and stent was placed to RCA. He has a past medical history of HTN and hypothyroidism. He currently smokes 1/2 pk of cigarettes daily. Daily ETOH use. Bruising noted to right groin area. CBC/BMP: 01/20/17 0630 01/20/17 0630 Significant Findings Laboratory Tests Test 01/18/17 10:05 01/18/17 18:42 01/19/17 04:10 01/20/17 06:30 Hematocrit 51.1 % (39.0-51.0) 38.2 % (39.0-51.0) 34.5 % (39.0-51.0) Lymphocytes (%) (Auto) 47.2 % (9.0-44.0) Random Glucose 158 MG/DL (74-106) 142 MG/DL (74-106) 128 MG/DL (74-106) Calcium Level 8.1 MG/DL (8.5-10.1) 7.6 MG/DL (8.5-10.1) 7.8 MG/DL (8.5-10.1) Estimat Glomerular Filtration Rate 79 ML/MIN (>89) 71 ML/MIN (>89) 84 ML/MIN (>89) Creatine Kinase MB 8.4 NG/ML (0.5-3.6) Troponin I 1.08 NG/ML (0.02-0.05) White Blood Count 11.1 TH/MM3 (4.0-11.0) Red Blood Count 3.82 MIL/MM3 (4.50-5.90) 3.45 MIL/MM3 (4.50-5.90) Hemoglobin 12.9 GM/DL (13.0-17.0) 12.0 GM/DL (13.0-17.0) Monocytes (%) (Auto) 9.5 % (0.0-8.0) 9.4 % (0.0-8.0) Monocytes # (Auto) 1.1 TH/MM3 (0-0.9) Potassium Level 3.3 MEQ/L (3.5-5.1) Triglycerides Level 678 MG/DL (42-150) HDL Cholesterol 34.3 MG/DL (40.0-60.0) Mean Corpuscular Hemoglobin 34.7 PG (27.0-34.0) Total Protein 6.3 GM/DL (6.4-8.2) Albumin 3.2 GM/DL (3.4-5.0) Free Triiodothyronine (T3) pg/dL 2.14 PG/ML (2.18-3.98) Thyroid Stimulating Hormone 3rd Gen 9.010 uIU/ML (0.358-3.740) Hospital Course This 51-year-old male says who presented to ED with chest pain. He was brought to prosthetics lab technician as a code stemi and stent was placed to RCA. He has a past medical history of HTN and hypothyroidism. He currently smokes 1/2 pk of cigarettes daily. Daily ETOH use. Bruising noted to right groin area. TSH was elevated with normal T4 and low T3 so levothyroxine increased and will need to be rechecked in 6 weeks. Also blood sugar noted to be elevated. HAIC pending and will need to be followed up in office. Tobacco cessation discussed and patient feels ready to quit. Discharged home with . Pt Condition on Discharge: Good Discharge Disposition: Discharge Home Discharge Instructions DIET: Follow Instructions for: Heart Healthy Diet Activities you can perform: Regular-No Restrictions Follow up Referrals: Cardiology @ [facility] Follow-up @ [facility] New Medications: Aspirin (Aspirin Low Strength) 81 Mg Chew 81 MG PO DAILY for Blood Clot Prevention for 90 Days, EA Atorvastatin (Lipitor) 10 Mg Tab 20 MG PO HS for Cholesterol Management for 90 Days, TAB Clopidogrel (Plavix) 75 Mg Tab 75 MG PO DAILY for Blood Clot Prevention for 90 Days, TAB Levothyroxine (Synthroid) 125 Mcg Tab 150 MCG PO DAILY@0600 for Thyroid for 60 Days, TAB Lisinopril (Lisinopril) 5 Mg Tab 5 MG PO DAILY for Blood Pressure Management for 90 Days, TAB Metoprolol Tartrate (Metoprolol Tartrate) 25 Mg Tab 12.5 MG PO BID for Blood Pressure Management for 90 Days, TAB Discontinued Medications: Levothyroxine (Levothyroxine) 137 Mcg Tab 137 MCG PO DAILY for Thyroid, #30 TAB 0 Refills Jewels Guevara Jan 20, 2017 08:28
--- NOTE | 2017-01-20 08:29 | PD.CARD.PN ---
Subjective Subjective Remarks no CV complaints No overnight events Objective Medications Current Medications Medications (Trade) Dose Ordered Sig/Patricia Route Start Time Stop Time Status Last Admin (NS Flush) 2 ml UNSCH PRN IVF 01/18/17 10:00 Nitroglycerin/ Dextrose 250 ml @ 3 mls/hr TITRATE PRN IV 01/18/17 10:00 01/18/17 10:07 (Tylenol) 325 mg Q4H PRN PO 01/18/17 11:30 (Aspirin Chew) 81 mg DAILY PO 01/19/17 09:00 01/19/17 08:35 (Plavix) 75 mg DAILY PO 01/19/17 09:00 01/19/17 08:35 (Lopressor) 12.5 mg BID PO 01/18/17 21:00 01/19/17 21:24 (Prinivil) 5 mg DAILY PO 01/19/17 09:00 01/19/17 08:35 (Lipitor) 10 mg HS PO 01/18/17 21:00 01/19/17 21:23 (Zofran Inj) 4 mg Q6H PRN IV PUSH 01/18/17 20:15 (Percocet 5-325 Mg) 1 tab Q6H PRN PO 01/18/17 20:15 01/19/17 22:22 (Synthroid) 150 mcg DAILY@0600 PO 01/21/17 06:00 Vital Signs / I&O Vital Signs Date Time Temp Pulse Resp B/P (MAP) Pulse Ox O2 Delivery O2 Flow Rate FiO2 01/20/17 06:00 72 01/20/17 05:01 71 01/20/17 04:00 68 01/20/17 03:00 98.7 75 16 119/72 (88) 97 01/20/17 03:00 72 01/20/17 02:00 65 01/20/17 01:00 64 01/20/17 00:00 62 01/19/17 23:39 16 01/19/17 23:00 64 01/19/17 23:00 98.7 70 16 142/84 (103) 97 01/19/17 22:00 78 01/19/17 21:00 68 01/19/17 20:00 90 01/19/17 19:00 98 Room Air 01/19/17 19:00 88 01/19/17 19:00 66 16 134/82 (99) 98 01/19/17 18:00 76 01/19/17 17:04 66 01/19/17 16:00 65 01/19/17 15:00 98 Room Air 01/19/17 15:00 75 18 128/78 (95) 98 01/19/17 15:00 75 01/19/17 14:06 84 01/19/17 13:00 80 01/19/17 12:00 81 01/19/17 11:00 99 Room Air 01/19/17 11:00 67 01/19/17 11:00 83 20 105/72 (83) 99 01/19/17 10:03 73 01/19/17 09:00 80 01/19/17 08:38 20 I/O 01/19/17 01/19/17 01/19/17 01/20/17 01/20/17 01/20/17 07:00 15:00 23:00 07:00 15:00 23:00 Intake Total 720 ml 720 ml 480 ml Output Total 650 ml 520 ml Balance 70 ml 720 ml -40 ml Intake Oral 720 ml 720 ml 480 ml Output Urine Total 650 ml 520 ml # Voids 4 # Bowel Movements 1 1 Physical Exam GENERAL: Well-nourished, well-developed patient. SKIN: Warm and dry. HEAD: Normocephalic. EYES: No scleral icterus. No injection or drainage. NECK: Supple, trachea midline. No JVD or lymphadenopathy. CARDIOVASCULAR: Regular rate and rhythm without murmurs, gallops, or rubs. RESPIRATORY: Breath sounds equal bilaterally. No accessory muscle use. GASTROINTESTINAL: Abdomen soft, non-tender, nondistended. EXTREMITIES: No cyanosis, or edema. NEUROLOGICAL: Awake, alert, and oriented x 3. Non-focal. Laboratory Laboratory Tests Test 01/20/17 06:30 White Blood Count 9.6 TH/MM3 Red Blood Count 3.45 MIL/MM3 Hemoglobin 12.0 GM/DL Hematocrit 34.5 % Mean Corpuscular Volume 99.8 FL Mean Corpuscular Hemoglobin 34.7 PG Mean Corpuscular Hemoglobin Concent 34.7 % Red Cell Distribution Width 14.7 % Platelet Count 159 TH/MM3 Mean Platelet Volume 8.4 FL Neutrophils (%) (Auto) 62.1 % Lymphocytes (%) (Auto) 25.6 % Monocytes (%) (Auto) 9.4 % Eosinophils (%) (Auto) 2.3 % Basophils (%) (Auto) 0.6 % Neutrophils # (Auto) 6.0 TH/MM3 Lymphocytes # (Auto) 2.5 TH/MM3 Monocytes # (Auto) 0.9 TH/MM3 Eosinophils # (Auto) 0.2 TH/MM3 Basophils # (Auto) 0.1 TH/MM3 CBC Comment DIFF FINAL Differential Comment Blood Urea Nitrogen 7 MG/DL Creatinine 0.94 MG/DL Random Glucose 128 MG/DL Total Protein 6.3 GM/DL Albumin 3.2 GM/DL Calcium Level 7.8 MG/DL Alkaline Phosphatase 47 U/L Aspartate Amino Transf (AST/SGOT) 16 U/L Alanine Aminotransferase (ALT/SGPT) 19 U/L Total Bilirubin 0.7 MG/DL Sodium Level 138 MEQ/L Potassium Level 3.7 MEQ/L Chloride Level 104 MEQ/L Carbon Dioxide Level 26.9 MEQ/L Anion Gap 7 MEQ/L Estimat Glomerular Filtration Rate 84 ML/MIN Free Thyroxine 0.85 NG/DL Free Triiodothyronine (T3) pg/dL 2.14 PG/ML Thyroid Stimulating Hormone 3rd Gen 9.010 uIU/ML Assessment and Plan Problem List: (1) STEMI (ST elevation myocardial infarction) ICD Codes: I21.3 - ST elevation (STEMI) myocardial infarction of unspecified site Status: Acute Plan: s/p PCI/FABRICIO to Mid RCA. Chest pain free, ambulating without difficulty. Right side hematoma after bowel movement. Recommendations: - ASA and Plavix - BB, ACEi, Statins - Encourage ambulation and incentive spirometry - Stable to d/c home today - Follow up with me in 1 week (2) DDD (degenerative disc disease), lumbar ICD Codes: M51.36 - DDD (degenerative disc disease), lumbar Status: Acute Problem Qualifiers (1) STEMI (ST elevation myocardial infarction): Qualified Codes: I21.11 - ST elevation (STEMI) myocardial infarction involving right coronary artery Jimmy Flowers MD Jan 20, 2017 08:29
[2017-01-20 10:59] LABS: HEMOGLOBIN A1b 1.7 %; HEMOGLOBIN Ao 84.8 %; HEMOGLOBIN LA1C 2.2 %; HEMOGLOBIN P3 3.8 %
[2017-01-21] MEDS ORDERED: LEVOTHYROXINE SODIUM 150 MCG TAB PO SCH (06:00)
== END 2017-01-20 09:24 | disposition home or self-care (01) | DRG 247 ==
LOC: PHED 09:55 → PHEDA 10:05 → HCIS 11:40
PROVIDERS: ADMIT Family Medicine; ATTEND Family Medicine
PROC: 027034Z Dilation of Coronary Artery, One Artery with Drug-eluting Intraluminal Device, Percutaneous Approach (ICD-10-PCS; principal; 2017-01-18)
PROC: 4A023N7 Measurement of Cardiac Sampling and Pressure, Left Heart, Percutaneous Approach (ICD-10-PCS; 2017-01-18)
PROC: B2111ZZ Fluoroscopy of Multiple Coronary Arteries using Low Osmolar Contrast (ICD-10-PCS; 2017-01-18)
PROC: B2151ZZ Fluoroscopy of Left Heart using Low Osmolar Contrast (ICD-10-PCS; 2017-01-18)
DX: I21.19 ST elevation (STEMI) myocardial infarction involving other coronary artery of inferior wall (principal); I10 Essential (primary) hypertension; E03.9 Hypothyroidism, unspecified; E87.6 Hypokalemia; F17.210 Nicotine dependence, cigarettes, uncomplicated; R73.9 Hyperglycemia, unspecified
CPT/HCPCS: 71010; 80048; 80053; 80061; 82550; 82552; 83036; 83735; 83880; 84439; 84443; 84481; 84484; 85014; 85018; 85025; 85610; 85730; 92941; 93005; 93306; 93458; C1725; C1769; C1874; C1887; C1893; J0583; J1644; J2250; J2270; J2405; J3010; J7030; Q9967